=== PATIENT | female | born 1995 | race Caucasian/White ===

== ENCOUNTER 2021-08-20 10:49 | Inpatient (IN) ==
[2021-08-20] MEDS ORDERED: OXYTOCIN 30 UNITS/500 ML BAG IV PRN ×2 (11:35→14:40)
[2021-08-20] MEDS: LACTATED RINGER'S 1,000 ML IV PRN ×2 (11:52→13:02)
[2021-08-20 11:58] LABS: Hemoglobin 12.8 g/dL (12.0-16.0); Mean Corpuscular Hemoglobin 30.1 pg (25-34); Mean Corpuscular Hgb Conc 33.7 g/dL (32-36); Mean Corpuscular Volume 89.4 fL (80-100); Mean Platelet Volume 10.1 fL (7.4-10.4); Platelet Count 220 K/uL (130-400); RDW Coefficient of Variation 15.7 % (11.5-14.5); RDW Standard Deviation 51.9 fL (36.4-46.3); Red Blood Count 4.25 M/uL (4.2-5.4)
[2021-08-20] MEDS ORDERED: ePHEDrine sulfate 50 MG/ML AMP ONE (12:00)
[2021-08-20] MEDS ORDERED: SODIUM CHLORIDE 0.9% INJ 10 ML VIAL ONE (12:01)
[2021-08-20] MEDS ORDERED: fentaNYL 2MCG/ML ROPIVACAINE 1.25MG/ML 100 ML BAG EPI ONE (12:01)
[2021-08-20] MEDS ORDERED: fentaNYL citrate 100 MCG/2 ML VIAL ONE (12:01)
[2021-08-20] MEDS ORDERED: BUPIVACAINE 0.25% 30 ML VIAL ONE (12:01)
[2021-08-20] MEDS ORDERED: ePHEDrine sulfate 50 MG/ML AMP IV PRN (13:23)
[2021-08-20] MEDS ORDERED: NALOXONE HCL 1 MG in SODIUM CHLORIDE 0.9% 1000ML 1,000 ML IV PRN (13:23)
[2021-08-20] MEDS ORDERED: ONDANSETRON INJ 2 MG/ML 2 ML VIAL IV PRN (13:23)
[2021-08-20] MEDS ORDERED: NALOXONE HCL 0.4 MG/1 ML VIAL/CARP IV PRN (13:23)
[2021-08-20] MEDS ORDERED: fentaNYL 2MCG/ML ROPIVACAINE 1.25MG/ML 100 ML BAG EPI PRN (13:23)
[2021-08-20] MEDS ORDERED: NALBUPHINE HCL INJ 10 MG/ML AMP IV PRN (13:23)
[2021-08-20] MEDS ORDERED: diphenhydrAMINE 50 MG/ML VIAL IV PRN (13:23)
--- NOTE | 2021-08-20 13:23 | Anesthesiology Consultation ---
Date of Service August 20, 2021 Assessment & Plan ASA ASA2 Proposed Anesthesia Anesthesia Type: Labor Epidural Risk / Benefits Reviewed With: PT / POA / Parent / Guardian, Accepts Plan and Informed Consent Obtained History Height/Weight Height: 5 ft 3 in Weight: 71.668 kg Allergies Allergy/AdvReac Type Severity Reaction Status Date / Time No Known Allergies Allergy Unverified 09/04/17 01:17 Medications Home Medications Medication Instructions Recorded Confirmed Last Taken prenat.vits,jacqueline,pkk-dttf-pveaf 1 tab PO DAILY 08/07/21 08/20/21 08/19/21 Active Medications Generic Name Dose Route Start Last Admin Trade Name Freq PRN Reason Stop Dose Admin Lactated Ringer's 1,000 mls @ 125 mls/hr 08/20/21 11:35 08/20/21 13:15 Lr IV 08/22/21 11:34 125 mls/hr .Q8H PRN Infusion L&D Protocol Protocol Past Medical History Medical History ADHD Anemia PTSD (post-traumatic stress disorder) Exercise / Class Metabolic Activity II 4-5 Yardwork/Stairs/Walk up hill Past Surgical History Surgical History No history of previous surgery Past Anesthesia History No Hx of Anesthesia Complications and No Family Hx of Anesthesia Complications History of PONV No Hx of PONV and No Hx of Motion Sickness Social History Smoking Status: Former smoker Hx Alcohol Use: No Hx Substance Use: No substance use type: does not use Review of Systems denies fever/cough/ colds/ chest pain/ SOB/ SATISH denies SATISH Physical Exam Vital Signs Last Vital Signs Temp 36.7 C 08/20/21 11:11 Pulse 80 08/20/21 13:20 Resp 20 08/20/21 11:11 BP 117/72 08/20/21 13:19 Pulse Ox 98 08/20/21 13:20 ENMT Mouth: no TMJ abnormality and no dentition abnormality Thyromental Distance: > or= 3.5 Finger Breadths Mallampati Class: II Neck neck extension not limited Respiratory normal respiratory effort; no respiratory distress Auscultation: lungs clear to auscultation bilaterally Cardiovascular Rate/Rhythm: regular rate and regular rhythm Neurologic moves all extremities Psychiatric Orientation: alert and oriented x 3 Testing Laboratory Results 08/20/21 11:48
[2021-08-20] MEDS ORDERED: miSOPROStoL 200 MCG TAB ONE (14:23)
[2021-08-20] MEDS ORDERED: METHYLERGONOVINE MALEATE 0.2 MG/ML AMP ONE (14:24)
[2021-08-20] MEDS ORDERED: DIPHTHERIA/TETANUS/PERTUSSIS 0.5 ML SYR/VIAL IM ONE (14:40)
[2021-08-20] MEDS ORDERED: BENZOCAINE 20% AER SPR 82.5 GM CAN EXT PRN (14:40)
[2021-08-20] MEDS ORDERED: bisacodyL 10 MG SUPP PR PRN (14:40)
[2021-08-20] MEDS ORDERED: HYDROCORTISONE ACETATE 25 MG SUPP PR PRN (14:40)
[2021-08-20] MEDS ORDERED: METHYLERGONOVINE MALEATE 0.2 MG/ML AMP IM ONE (14:40)
[2021-08-20] MEDS ORDERED: miSOPROStoL 200 MCG TAB PR ONE (14:40)
--- NOTE | 2021-08-20 15:58 | Anesthesia Procedure Note ---
Date of Service August 20, 2021 Anesthesia Post Epidural Note Vital Signs Vital Signs: Temp Pulse Resp BP Pulse Ox 36.6 C 69 20 128/76 97 08/20/21 14:30 08/20/21 15:53 08/20/21 15:45 08/20/21 15:47 08/20/21 15:53 Notes Mental Status: alert / awake / arousable and participated in evaluation Patient Amnestic to Procedure: Yes Nausea / Vomiting: adequately controlled Pain: adequately controlled Airway Patency, RR, SpO2: stable & adequate BP & HR: stable & adequate Hydration State: stable & adequate Anesthetic Complications: no major complications apparent and Pt Satisfied with anesthetic care
--- NOTE | 2021-08-20 16:44 | Delivery Summary ---
DELIVERY NOTE: The patient delivered a live infant female in left occiput anterior presentation. There was nuchal c ord x2, which was easily reduced. Infant was delivered and placed on mother's abdomen. Delayed cord clamp was performed. Cord blood was obtained. 's weight and Apgars are in the pediatric adri[address] rd. Placenta was spontaneously delivered. Inspection of the placenta shows a normal grossly looking placenta with 3-vessel cord. Inspection of the perineum showed a first-degree laceration, which was repaired with 2-0 Vicryl. Rec aracely exam post-repair showed good sphincter tone. Estimated blood loss was 450 mL. Baby and mother are doing well and stable. All instruments were rem bonnie from the vagina and accounted for x2 including sponges, needles, and retractors. Job ID: [id number]
[2021-08-20] MEDS: DOCUSATE SODIUM 100 MG CAP PO SCH (21:13)
[2021-08-20] MEDS: IBUPROFEN 600 MG TAB PO PRN (21:13)
[2021-08-21 07:06] LABS: Hematocrit (blood only) 40.5 % (37-47); Hemoglobin 13.1 g/dL (12.0-16.0); Mean Corpuscular Hemoglobin 28.8 pg (25-34); Mean Corpuscular Hgb Conc 32.3 g/dL (32-36); Mean Platelet Volume 10.2 fL (7.4-10.4); Platelet Count 208 K/uL (130-400); RDW Coefficient of Variation 15.7 % (11.5-14.5); RDW Standard Deviation 51.3 fL (36.4-46.3); Red Blood Count 4.55 M/uL (4.2-5.4)
[2021-08-21] MEDS: IBUPROFEN 600 MG TAB PO PRN (07:15)
[2021-08-21] MEDS: DOCUSATE SODIUM 100 MG CAP PO SCH (07:15)
[2021-08-21] MEDS: ACETAMINOPHEN 325 MG TAB PO PRN ×2 (07:43→12:25)
[2021-08-21] MEDS ORDERED: PRENATAL VITAMIN 1 TAB PO SCH (08:00)
--- NOTE | 2021-08-21 10:54 | Obstetrical Progress Note ---
Date of Service August 21, 2021 Assessment & Plan (1) Normal course: PPD #1 pt doing well disch home with instructions Results & Data ([facility]) Vital Signs (Past 12 Hours) Vital Signs Temp Pulse Pulse Resp BP BP 08/21/21 07:40 20 08/21/21 07:15 37.0 C 76 16 111/71 08/21/21 04:45 36.6 C 80 16 107/70 08/21/21 01:00 36.4 C L 86 18 96/62 L
[2021-08-21] MEDS ORDERED: bisacodyL 5 MG TABEC PO SCH (20:00)
== END 2021-08-21 16:22 | disposition home or self-care (01) | DRG 807 ==
LOC: OPB 10:49 → 4S1 10:50 → 4E2 18:10